=== PATIENT | female | born 1985 | race African-American/Black ===

== ENCOUNTER 2017-09-23 20:16 | Emergency (ER) | payer OTHER ==
[~2017-09-23] VITALS: Ht 157.5 cm; Wt 108.9 kg
[~2017-09-23 20:16] MED LIST: CYCLOBENZAPRINE5 MG PO; KEFLEX500 MG PO; PROBIOTIC1 EAC1 PO; TRINATE TABLET1 TAB PO
[2017-09-23] MEDS ORDERED: VENTOLIN HFA 1818 GM INH (22:27)
[2017-09-23 22:51] LABS: URINE BILIRUBIN NEGATIVE (Negative); URINE BLOOD TRACE (Negative); URINE CLARITY CLEAR; URINE COLOR YELLOW; URINE GLUCOSE-RANDOM* NEGATIVE (Negative); URINE KETONES NEGATIVE (Negative); URINE LEUKOCYTES-REFLEX NEGATIVE (Negative); URINE NITRITE-REFLEX NEGATIVE (Negative); URINE PROTEIN (DIPSTICK) 3+ (Negative); URINE SPECIFIC GRAVITY >= 1.030 (1.005-1.035); URINE UROBILINOGEN 0.2 E.U./dl (0.2-1.0)
[2017-09-23 23:00] LABS: URINE CREATININE-RANDOM* 380.9 mg/dL
[2017-09-23 23:05] LABS: HYALINE CASTS 0-3 Few /LPF (None Seen); MUCUS 0-3 Light strn/LPF (None Seen); SQUAMOUS 4-10 Moderate /LPF (0-3)
[2017-09-23 23:06] LABS: BACTERIA-REFLEX 1-9 Few /HPF (None Seen); CRYSTALS None Seen /LPF (None Seen); URINE RBC 3-10 Few /HPF (0-2); URINE WBC-REFLEX 0-5 Rare /HPF (0-5)
[2017-09-23 23:42] LABS: PROT/CREAT RATIO 1.4; URINE PROTEIN-RANDOM* 524.9 mg/dL (<11.9)
[2017-09-24 00:02] LABS: HEMATOCRIT 37.3 % (37.0-47.0); HEMOGLOBIN 12.6 gm/dL (12.0-15.0); MCH 27.1 pg (26.0-34.0); MCHC 33.7 g/dL (28.0-37.0); MCV 80.4 fL (80.0-100.0); RBC 4.64 mil/uL (4.20-5.00); RDW 14.9 % (10.5-14.5); WBC 15.9 thou/uL (4.0-11.0)
[2017-09-24 00:13] LABS: CREATININE 0.7 mg/dL (0.6-1.0)
[2017-09-24 00:18] LABS: APTT 26.7 Seconds (24.5-32.8); PROTIME 9.4 Seconds (9.3-11.4)
[2017-09-24 00:19] LABS: TOTAL BILIRUBIN 0.2 mg/dL (<0.1-1.0); TOTAL PROTEIN 7.8 g/dL (6.4-8.2); URIC ACID* 4.7 mg/dL (2.6-7.2)
[2017-09-24 00:22] LABS: POTASSIUM 2.6 mmol/L (3.5-5.1)
== END 2017-09-24 01:30 | disposition short-term general hospital (02) ==
LOC: ER 20:16
PROVIDERS: Emergency Medicine
DX: O99.512 Diseases of the respiratory system complicating pregnancy, second trimester (principal); O16.2 Unspecified maternal hypertension, second trimester; J06.9 Acute upper respiratory infection, unspecified; Z3A.21 21 weeks gestation of pregnancy